=== PATIENT | male | born 1955 | race Caucasian/White ===

== ENCOUNTER → 2018-10-05 | Outpatient (CLI) | payer MEDICARE ==
--- NOTE | 2018-10-06 12:21 | XR ---
Right ankle HISTORY: Right ankle pain Reviews of the right ankle No comparisons There is soft tissue swelling present. Alignment, joint spaces, bone mineralization are maintained. T here is a plantar calcaneal spur. Enthesophyte present at the insertion of the Achilles tendon. Degen erative change present at the intertarsal joints, tarsometatarsal joints. IMPRESSION: Soft tissue swelling. Osteoarthritis and additional findings above.
== END | disposition home or self-care (01) ==
LOC: RADXRMAIN 18:57
PROVIDERS: ATTEND Family Medicine
DX: M19.071 Primary osteoarthritis, right ankle and foot (principal); M79.89 Other specified soft tissue disorders

== ENCOUNTER 2019-07-07 15:08 | Inpatient (IN) | payer MEDICARE ==
[2019-07-07] MEDS ORDERED: HEPARIN SODIUM,PORCINE 5,000 UNIT/ML 1 ML VIAL IV PRN (18:57)
[2019-07-07] MEDS ORDERED: HEPARIN SOD,PORK IN 0.45% NACL 25,000 UNIT in 0.45% NACL 1 250ML.BAG IV SCH (19:00)
[2019-07-07] MEDS ORDERED: DICYCLOMINE 20 MG TAB PO PRN (19:01)
[2019-07-07] MEDS: SODIUM CHLORIDE 0.9% 1,000 ML IV SCH ×2 (19:58→20:14)
[2019-07-07] MEDS: ATORVASTATIN 80 MG TAB PO SCH (20:02)
[2019-07-07] MEDS: MONTELUKAST 10 MG TAB PO SCH (20:02)
[2019-07-07 20:14] LABS: Glucose,Whole Blood 213 mg/dL (75-99)
[2019-07-07] MEDS: INSULIN ASPART (NovoLOG) 100 UNIT/ML VIAL SQ SCH (20:17)
[2019-07-08 05:13] LABS: Basophils # (A) 0.1 k/uL (0-0.2); Basophils % (A) 1 %; Eosinophils # (A) 0.2 k/uL (0-0.7); Eosinophils % (A) 2 %; HCT 41.1 % (39.0-53.0); HGB 13.7 gm/dL (13.0-17.5); Lymphocytes # (A) 3.1 k/uL (1.0-4.8); Lymphocytes % (A) 37 %; MCH 29.3 pg (25.0-35.0); MCHC 33.4 g/dL (31.0-37.0); MCV 87.9 fL (80.0-100.0); Mean Platelet Volume 6.8; Monocytes # (A) 0.6 k/uL (0-1.0); Monocytes % (A) 7 %; Neutrophils # (A) 4.2 k/uL (1.3-7.7); Neutrophils % (A) 51 %; Platelet Count 260 k/uL (150-450); RBC 4.67 m/uL (4.30-5.90); WBC 8.2 k/uL (3.8-10.6)
[2019-07-08 06:07] LABS: ALT 31 U/L (21-72); AST 44 U/L (17-59); African American GFR (CKD) >90 (>60 ml/min/1.73 sqM); Albumin 3.4 g/dL (3.5-5.0); Alkaline Phosphatase 78 U/L (38-126); Anion Gap 6 mmol/L; Blood Urea Nitrogen 13 mg/dL (9-20); Calcium 8.5 mg/dL (8.4-10.2); Carbon Dioxide 25 mmol/L (22-30); Chloride 105 mmol/L (98-107); Glucose 181 mg/dL (74-99); Non-African American GFR(CKD) >90 (>60 ml/min/1.73 sqM); Potassium 4.1 mmol/L (3.5-5.1); Sodium 136 mmol/L (137-145); Total Protein 6.3 g/dL (6.3-8.2)
[2019-07-08 06:10] LABS: Glucose,Whole Blood 162 mg/dL (75-99)
[2019-07-08] MEDS: INSULIN ASPART (NovoLOG) 100 UNIT/ML VIAL SQ SCH ×4 (06:12→20:30)
[2019-07-08] MEDS: METOPROLOL SUCCINATE (ER) 50 MG TAB.ER.24H PO SCH (06:16)
[2019-07-08] MEDS: ASPIRIN 81 MG PO SCH (06:16)
[2019-07-08] MEDS: SERTRALINE 50 MG TAB PO SCH (06:17)
[2019-07-08] MEDS: CLOPIDOGREL 75 MG TAB PO SCH (06:17)
[2019-07-08] MEDS: PANTOPRAZOLE 40 MG TABLET PO SCH ×2 (06:17→17:30)
[2019-07-08] MEDS: GABAPENTIN 300 MG CAP PO SCH (06:17)
[2019-07-08] MEDS ORDERED: SODIUM CHLORIDE 0.9% 1,000 ML IV ONE (09:27)
[2019-07-08] MEDS ORDERED: LIDOCAINE 1% INJ 10MG/ML (20 ML MDV) ONE (09:33)
[2019-07-08] MEDS ORDERED: VERAPAMIL 2.5 MG/ML 2 ML AMP ONE (09:34)
[2019-07-08] MEDS ORDERED: HEPARIN SODIUM 1,000 UN/ML (10ML VL) ONE (09:39)
[2019-07-08] MEDS ORDERED: MIDAZOLAM 2 MG/2 ML VIAL IVP ONE (09:58)
[2019-07-08] MEDS ORDERED: LIDOCAINE 1% INJ 10MG/ML (20 ML MDV) SQ ONE (09:59)
[2019-07-08] MEDS: VERAPAMIL SYRINGE (5 MG/10 ML) INTRAARTER ONE ×2 (10:00→10:12)
[2019-07-08] MEDS ORDERED: HEPARIN SODIUM 1,000 UN/ML (10ML VL) IV ONE (10:02)
[2019-07-08] MEDS ORDERED: IOPAMIDOL-370 125ML BTL INJ ONE (10:12)
[2019-07-08] MEDS ORDERED: RX INFO: IV CONTRAST WAS GIVEN 1 EACH MISC MISCELLANE PRN (10:16)
[2019-07-08] MEDS ORDERED: SODIUM CHLORIDE 0.9% 1,000 ML IV SCH (10:30)
--- NOTE | 2019-07-08 10:42 | CC ---
CARDIAC CATHETERIZATION REPORT DATE OF SERVICE: July 08, 2019 PERFORMING PHYSICIAN: Asher Cadena MD. PROCEDURE PERFORMED: 1. Selective right and left coronary angiogram. 2. Left heart catheterization. INDICATION: This is a very pleasant 63-year-old male patient with history of hypertension, dyslipidemia, and diabetes, presented to [facility] with shortness of breath and chest discomfort. He was ruled in for acute [id number] myocardial infarction. Because of that, coronary angiogram was advised. APPROACH: Right radial artery. COMPLICATION: None. LEVEL OF SEDATION: Moderate with sedation length of 15 minutes. PROCEDURE DESCRIPTION: After obtaining an informed consent, the patient was brought to the cardiac solar lab technician. The right radial artery was cannulated using micropuncture technique, the micropuncture wire passed easily. Then I placed a 6-Korean sheath in the right radial artery. After that I gave the patient 2 mg of verapamil IA and 10,000 units of heparin IV. Selective right and left coronary angiogram performed using JR4 and JL3.5 catheters. Left heart catheterization was performed using pigtail catheter. The procedure was completed without any complication. SELECTIVE CORONARY ANGIOGRAM: 1. The RCA is a large caliber vessel. It is a dominant vessel and appeared to be angiographically normal. It distally bifurcates into PDA and PLV branches. Both appeared to be angiographically normal. 2. The left main is angiographically normal it bifurcates into LCX and LAD. 3. The LCX is a large caliber vessel. It is a nondominant vessel. The left circumflex is angiographically normal, in the midportion gives rise into a large OM branch which seems to be angiographically normal and the circumflex continued after that as a small-caliber vessel in the AV groove. In the very distal portion gives rise into a small 2nd OM branch which seems to be normal. 4. The LAD: The proximal LAD appeared to be angiographically normal. It gives rise into a medium sized diagonal branch which seems to be normal. The mid LAD and distal LAD appeared to be angiographically normal. The LAD in the mid to distal portion gives rise into 2 other diagonal branches. They appeared to be angiographically normal. HEMODYNAMICS: The LVEDP was about 4-8 mmHg without significant gradient across aortic valve. CONCLUSION: 1. Normal coronary angiogram. 2. Normal LVEDP. POSTPROCEDURE MANAGEMENT: 1. Medical treatment. 2. Follow up with the patient. MMODL / IJN: [id number] /
[2019-07-08 11:55] LABS: Glucose,Whole Blood 190 mg/dL (75-99)
[2019-07-08 16:55] LABS: Glucose,Whole Blood 167 mg/dL (75-99)
--- NOTE | 2019-07-08 18:19 | P.HPIM ---
History of Present Illness H&P Date: 07/08/19 Chief Complaint: Shortness of breath- transferred from [facility] Mr. Lynn is a 62-year-old male with a past medical history of hypertension, hyperlipidemia, new onset diabetes transferred from [facility] for NSTEMI. Patient states that he has been treated for a upper respiratory tract infection recently and he has been recovering well. But for the past 2-3 weeks he has been feeling a pressure in the substernal area that has been bothering him. But couple of days back it was so severe that he came to [facility]. Over the patient had mildly elevated troponins and he was seen by cardiology Dr. Roberson who transferred the patient here for cardiac catheterization. This morning patient was taken for a cardiac catheterization by Dr. Roberson and had a clean coronary angiogram. Patient is comfortably sitting in the bed appe ars to be no acute distress. He states that he does not have the chest discomfort anymore. Patient denies having any shortness of breath. No fevers chills or rigors. No dysuria or hematuria. No abdominal pain nausea vomiting or diarrhea. Review of Systems REVIEW OF SYSTEMS: PSYCH: Normal psychiatric exam NEURO:No c/o weakness of the extremties, No facial droop, No speech abnormalities. VASCULAR: Peripheral nervous system within the normal limits no edema HEMATOLOGIC: No history of easy bleeding and bruising . No recent infections . RESPIRATORY: No cough, No SOB, No chest discomfort. IMMUNE: No infections INTEGUMENT: no rashes OPHTHALMOLOGIC: No blurry vision and no eye discharge : No dysuria or hematuria CARDIAC: No chest pain , shortness of breath , paroxysmal nocturnal dyspnea MUSCULOSKELETAL : No Aches or pains in the joints or muscles. GI: No abdominal pain, Nausea or vomiting. No constipation or diarrhea. 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, stage 3 kidney disease, abd hernia, History of Any Multi-Drug Resistant Organisms: None Reported Past Surgical History: Heart Catheterization Past Anesthesia/Blood Transfusion Reactions: No Reported Reaction Past Psychological History: No Psychological Hx Reported Smoking Status: Former smoker Past Alcohol Use History: None Reported Past Drug Use History: None Reported - Past Family History Father Family Medical History: Cancer Mother Family Medical History: Coronary Artery Disease (CAD), Dementia, Memory Impairment Medications and Allergies Home Medications Medication Instructions Recorded Confirmed Type Aspirin EC [Ecotrin Low Dose] 81 mg PO DAILY 07/07/19 07/07/19 History Bisacodyl [Dulcolax] 5 mg PO DAILY PRN 07/07/19 07/07/19 History Clopidogrel Bisulfate [Plavix] 75 mg PO DAILY 07/07/19 07/07/19 History Dicyclomine [Bentyl] 20 mg PO TID 07/07/19 07/07/19 History Gabapentin [Neurontin] 300 mg PO BID 07/07/19 07/07/19 History Metoprolol Succinate [Toprol XL] 50 mg PO DAILY 07/07/19 07/07/19 History Montelukast [Singulair] 10 mg PO DAILY 07/07/19 07/07/19 History Omeprazole 20 mg PO BID 07/07/19 07/07/19 History Rosuvastatin [Crestor] 20 mg PO DAILY 07/07/19 07/07/19 History Sertraline [Zoloft] 50 mg PO DAILY 07/07/19 07/07/19 History Allergies Allergy/AdvReac Type Severity Reaction Status Date / Time Androgenic Anabolic Steroid Allergy Rapid Verified 07/07/19 20:00 Heart Rate Physical Exam Vitals: Vital Signs Temp Pulse Resp BP Pulse Ox 07/08/19 12:00 78 16 07/08/19 08:00 98.1 F 78 16 164/87 95 07/08/19 04:00 98.6 F 89 16 135/82 95 07/08/19 00:00 98.3 F 82 17 151/89 94 L 07/07/19 20:00 97.7 F 70 19 146/53 94 L 07/07/19 18:48 97.7 F 70 19 146/83 94 L Intake and Output 07/08/19 07/08/19 07/08/19 06:59 14:59 22:59 Intake Total 1091.571 460 Output Total 200 Balance 1091.571 260 Intake: IV 20 220 Invasive Line 1 20 20 Intake, IV Titration 1071.571 Amount Heparin Sod,Pork in 0.45% 87.571 NaCl 25,000 unit In 0.45 % NaCl 1 250ml.bag @ 8 UNITS/KG/HR 9.89 mls/hr IV .Q24H [facility] Rx#: [id number] Sodium Chloride 0.9% 1, 984 000 ml @ 123 mls/hr IV . Q8H8M [facility] Rx#:[id number] Oral 240 Output: Urine 200 Other: Voiding Method Toilet Toilet Weight 119.6 kg GEN. APPEARANCE: alert, in no apparent distress HEENT: Normocephalic. No pallor. No icterus. No JVD. No thyromegaly. RESPIRATORY EXAM: normal lung sounds bilaterally. No wheeze or crackles. CARDIOVASCULAR EXAM: regular rate, normal rhythm, normal heart sounds. No additional sounds. GI/ABDOMINAL EXAM: soft, normal bowel sounds. No guarding or rigidity. No tenderness. EXTREMITIES EXAM: No edema. NEUROLOGICAL EXAM: alert, oriented X3, no focal neurological deficits PSYCHIATRIC EXAM: normal affect, normal mood SKIN EXAM: No rash Results CBC & Chem 7: 07/08/19 04:57 07/08/19 04:57 Labs: Abnormal Lab Results - Last 24 Hours (Table) 07/07/19 07/07/19 07/08/19 Range/Units 20:09 20:19 04:57 APTT 40.9 H 37.1 H (22.0-30.0) sec Sodium (137-145) mmol/L Glucose (74-99) mg/dL POC Glucose (mg/dL) 213 H (75-99) mg/dL Albumin (3.5-5.0) g/dL 07/08/19 07/08/19 07/08/19 Range/Units 04:57 05:49 11:41 APTT (22.0-30.0) sec Sodium 136 L (137-145) mmol/L Glucose 181 H (74-99) mg/dL POC Glucose (mg/dL) 162 H 190 H (75-99) mg/dL Albumin 3.4 L (3.5-5.0) g/dL 07/08/19 Range/Units 16:32 APTT (22.0-30.0) sec Sodium (137-145) mmol/L Glucose (74-99) mg/dL POC Glucose (mg/dL) 167 H (75-99) mg/dL Albumin (3.5-5.0) g/dL Thrombosis Risk Factor Assmnt - Choose All That Apply Any of the Below Risk Factors Present?: Yes Each Factor Represents 1 point: Obesity (BMI >25), Serious lung disease incl. pneumonia (< 1month) Other Risk Factors: Yes Each Risk Factor Represents 2 Points: Age 61-74 years Thrombosis Risk Factor Assessment Total Risk Factor Score: 4 Thrombosis Risk Factor Assessment Level: Moderate Risk Assessment and Plan Assessment: ASSESSMENT NSTEMI Hypertension New onset diabetes mellitus Stroke/TIA CK D stage III Hiatal hernia Multiple joint osteoarthritis Hyperlipidemia PLAN: Patient had normal coronary angiogram. With his new onset diabetes patient will need diabetic education. Currently he is on a sliding scale of insulin. Anticipate discharge in the next [address] Cosme to follow the patient from tomorrow.
[2019-07-08] MEDS: SODIUM CHLORIDE 0.9% 1,000 ML IV SCH (19:17)
[2019-07-08] MEDS: ATORVASTATIN 80 MG TAB PO SCH (20:26)
[2019-07-08] MEDS: MONTELUKAST 10 MG TAB PO SCH (20:26)
[2019-07-08 20:30] LABS: Glucose,Whole Blood 183 mg/dL (75-99)
[2019-07-09 06:07] LABS: Basophils # (A) 0.1 k/uL (0-0.2); Basophils % (A) 1 %; Eosinophils # (A) 0.7 k/uL (0-0.7); Eosinophils % (A) 8 %; HCT 39.9 % (39.0-53.0); HGB 13.6 gm/dL (13.0-17.5); Lymphocytes % (A) 36 %; MCHC 34.1 g/dL (31.0-37.0); MCV 87.9 fL (80.0-100.0); Mean Platelet Volume 7.6; Monocytes # (A) 0.7 k/uL (0-1.0); Monocytes % (A) 8 %; Neutrophils # (A) 3.8 k/uL (1.3-7.7); Neutrophils % (A) 45 %; Platelet Count 139 k/uL (150-450); RBC 4.54 m/uL (4.30-5.90); RDW 13.1 % (11.5-15.5); WBC 8.3 k/uL (3.8-10.6)
[2019-07-09 06:17] LABS: Glucose,Whole Blood 151 mg/dL (75-99)
[2019-07-09 06:23] LABS: African American GFR (CKD) >90 (>60 ml/min/1.73 sqM); Anion Gap 7 mmol/L; Blood Urea Nitrogen 10 mg/dL (9-20); Calcium 8.8 mg/dL (8.4-10.2); Carbon Dioxide 26 mmol/L (22-30); Chloride 104 mmol/L (98-107); Glucose 163 mg/dL (74-99); Non-African American GFR(CKD) >90 (>60 ml/min/1.73 sqM); Potassium 4.1 mmol/L (3.5-5.1); Sodium 137 mmol/L (137-145)
[2019-07-09] MEDS: PANTOPRAZOLE 40 MG TABLET PO SCH (06:37)
[2019-07-09] MEDS: INSULIN ASPART (NovoLOG) 100 UNIT/ML VIAL SQ SCH (06:37)
--- NOTE | 2019-07-09 07:23 | P.DS ---
Providers Date of admission: 07/07/19 18:11 Attending physician: Bro Cosme Consults: 07/07/19 19:22 Consult Physician Routine Consulting Provider: Asher Cadena Consult Reason/Comments: elevated troponin Do you want consulting provider notified?: Already Contacted Placement Type Exists?: Yes Primary care physician: Bro Cosme Hospital Course: The patient was essentially admitted for chest pain with element of elevated troponin. Due to his previous vascular disease, had coronary catheterization which is nominal. He will be discharged once cleared by cardiology. I suspect he has an element of new onset diabetes. His blood sugar has been fairly well- controlled during this hospitalization he'll follow-up with me in 3 days for elucidation and appropriate treatment at that time. Patient Condition at Discharge: Fair Plan - Discharge Summary Discharge Rx Participant: No New Discharge Prescriptions: Continue Bisacodyl [Dulcolax] 5 mg PO DAILY PRN PRN Reason: Constipation Sertraline [Zoloft] 50 mg PO DAILY Metoprolol Succinate [Toprol XL] 50 mg PO DAILY Clopidogrel Bisulfate [Plavix] 75 mg PO DAILY Rosuvastatin [Crestor] 20 mg PO DAILY Omeprazole 20 mg PO BID Montelukast [Singulair] 10 mg PO DAILY Gabapentin [Neurontin] 300 mg PO BID Dicyclomine [Bentyl] 20 mg PO TID Aspirin EC [Ecotrin Low Dose] 81 mg PO DAILY Discharge Medication List Aspirin EC [Ecotrin Low Dose] 81 mg PO DAILY 07/07/19 [History] Bisacodyl [Dulcolax] 5 mg PO DAILY PRN 07/07/19 [History] Clopidogrel Bisulfate [Plavix] 75 mg PO DAILY 07/07/19 [History] Dicyclomine [Bentyl] 20 mg PO TID 07/07/19 [History] Gabapentin [Neurontin] 300 mg PO BID 07/07/19 [History] Metoprolol Succinate [Toprol XL] 50 mg PO DAILY 07/07/19 [History] Montelukast [Singulair] 10 mg PO DAILY 07/07/19 [History] Omeprazole 20 mg PO BID 07/07/19 [History] Rosuvastatin [Crestor] 20 mg PO DAILY 07/07/19 [History] Sertraline [Zoloft] 50 mg PO DAILY 07/07/19 [History]
[2019-07-09 08:40] VITALS: BP 145/83; PULSE 70; RESP 16; TEMP 98.1
[2019-07-09] MEDS ORDERED: INFLUENZA VACCINE (6 MOS+) 60 MCG/0.5 ML SYRINGE IM ONE (08:46)
[2019-07-09] MEDS: ASPIRIN 81 MG PO SCH (09:07)
[2019-07-09] MEDS: CLOPIDOGREL 75 MG TAB PO SCH (09:07)
[2019-07-09] MEDS: METOPROLOL SUCCINATE (ER) 50 MG TAB.ER.24H PO SCH (09:07)
[2019-07-09] MEDS: GABAPENTIN 300 MG CAP PO SCH (09:07)
[2019-07-09] MEDS: SERTRALINE 50 MG TAB PO SCH (09:07)
[2019-07-09 10:18] LABS: Hemoglobin A1C 9.2 % (4.0-6.0)
--- NOTE | 2019-07-09 10:20 | PN ---
PROGRESS NOTE Mr. Lynn is a 63-year-old male who presented with symptoms of cough and dyspnea to [facility], had mild troponin elevation, was evaluated by Dr. Cadena, subsequently transferred to [facility], underwent cardiac catheterization, was found to have no evidence of obstructive disease. He is doing well this morning. His breathing has been stable. He denies any dizziness, palpitation. Denies any nausea. He continues to be on aspirin once a day, Lipitor 80 mg daily, Plavix 75 mg daily, metoprolol succinate 50 mg daily, Singulair 10 mg daily, sertraline. PHYSICAL EXAMINATION: Blood pressure running in the 130s to 140s with a heart rate in the 70s. LUNGS: Clear. HEART: Regular rate and rhythm, S1, S2. No S3. No rub. ABDOMEN: Soft, nontender. EXTREMITIES: No edema. Right radial pulse intact. LAB DATA: Revealed BUN and creatinine 10 and 0.76, potassium 4.1. IMPRESSION: 1. Mild troponin elevation with no evidence of obstructive coronary artery disease, could be related to his pneumonia. 2. History of hypertension. 3. Hyperlipidemia. RECOMMENDATION: From the cardiac standpoint, he is stable. Should be able to be discharged home today and followed as an outpatient by Dr. Cadena. MMODL / IJN: [id number] /
== END 2019-07-09 09:35 | disposition home or self-care (01) | DRG 287 ==
LOC: 3SCARD 18:11
PROVIDERS: ADMIT Family Medicine; ATTEND Family Medicine
PROC: 4A023N7 Measurement of Cardiac Sampling and Pressure, Left Heart, Percutaneous Approach (ICD-10-PCS; 2019-07-08)
PROC: B2111ZZ Fluoroscopy of Multiple Coronary Arteries using Low Osmolar Contrast (ICD-10-PCS; 2019-07-08)
PROC: 3E02340 Introduction of Influenza Vaccine into Muscle, Percutaneous Approach (ICD-10-PCS; principal; 2019-07-09)
DX: R07.9 Chest pain, unspecified (principal); E11.22 Type 2 diabetes mellitus with diabetic chronic kidney disease; N18.3 Chronic kidney disease, stage 3 (moderate); R79.89 Other specified abnormal findings of blood chemistry; Z23 Encounter for immunization; I12.9 Hypertensive chronic kidney disease with stage 1 through stage 4 chronic kidney disease, or unspecified chronic kidney disease; E78.5 Hyperlipidemia, unspecified; J06.9 Acute upper respiratory infection, unspecified; K44.9 Diaphragmatic hernia without obstruction or gangrene; J45.909 Unspecified asthma, uncomplicated; K46.9 Unspecified abdominal hernia without obstruction or gangrene; M19.90 Unspecified osteoarthritis, unspecified site; Z79.82 Long term (current) use of aspirin; Z79.02 Long term (current) use of antithrombotics/antiplatelets; Z79.899 Other long term (current) drug therapy; Z86.73 Personal history of transient ischemic attack (TIA), and cerebral infarction without residual deficits; Z87.891 Personal history of nicotine dependence; Z88.8 Allergy status to other drugs, medicaments and biological substances; Z82.49 Family history of ischemic heart disease and other diseases of the circulatory system; Z81.8 Family history of other mental and behavioral disorders; Z80.9 Family history of malignant neoplasm, unspecified
CPT/HCPCS: 80048; 80053; 83036; 85025; 85730; 90686; 93458

== ENCOUNTER 2021-12-02 17:46 | Emergency (ER) | payer MEDICARE ==
[2021-12-02] MEDS ORDERED: SODIUM CHLORIDE 0.9% 1,000 ML IV STA (19:14)
[2021-12-02] MEDS ORDERED: PANTOPRAZOLE 40 MG/10 ML VIAL IVP STA (19:15)
--- NOTE | 2021-12-02 19:20 | ED ---
General Adult HPI - General Chief complaint: GI Bleed Stated complaint: Fall,Blood in Stool,Blood Thinners Time Seen by Provider: 12/02/21 18:38 Source: patient, family Mode of arrival: wheelchair Limitations: no limitations - History of Present Illness Initial comments: Dictation was produced using [employer] dictation software. please excuse any gram matical, word or spelling errors. Chief Complaint: 65-year-old male presents emergency Department with bright red blood per rectum History of Present Illness: Is a 65-year-old male presents emergency Department with bright red blood per rectum. He also reports accompanied left lower quadrant pain. Patient's bleeding allegedly began at approximately 2 PM today. He is had multiple bouts of bright blood per rectum since then. Patient denies any nausea. He denies any upper quadrant abdominal pain. at the bedside reports that he looked pale. He takes Plavix but no anticoagulation medications. He denies any rectal pain. Patient isn't diaphoretic and lightheaded. reports that he had 6 bowel movements of bright red blood per rectum today. The ROS documented in this emergency department record has been reviewed and confirmed by me. Those systems with pertinent positive or negative responses have been documented in the HPI. All other systems are other negative and/or noncontributory. PHYSICAL EXAM: General Impression: Alert and oriented x3, pale, diaphoretic HEENT: Normocephalic atraumatic, extra-ocular movements intact, pupils equal and reactive to light bilaterally, mucous membranes moist. Cardiovascular: Heart regular rate and rhythm Chest: Able to complete full sentences, no retractions, no tachypnea Abdomen: abdomen soft, non-tender, non-distended, no organomegaly Musculoskeletal: Pulses present and equal in all extremities, no peripheral ed dae Motor: no focal deficits noted Neurological: CN II-XII grossly intact, no focal motor or sensory deficits noted Skin: Intact with no visualized rashes ED course: 65-year-old male presents to the emergency department for red blood per rectum. Vital signs upon arrival are within acceptable limits. He's had multiple episodes of bloody bowel movements. Rectal exam shows residual blood around the rectum but no obvious sign of bleeding. His report accompanied left lower quadrant abdominal pain. Denies any constitutional symptoms however. Computed tomography scan of the abdomen and pelvis shows mild diverticulitis of the lower descending colon. he is started on Zosyn. Patient is continuing to pass blood clots in his diaper. Although his vitals and his hemoglobin appear to be stable at this point he is having active bleeding. Patient given Protonix. Her for transfusion of one pack red blood cell for concerns of symptomatic anemia. Spoke with Dr. Lira who is willing to accept the patient's care for ER to ER transfer. EKG interpretation: Ventricular rate 84, sinus rhythm,. Interval 145, QS 141, QTc 438, right bundle branch block. No VA prolongation, no QTC prolongation, no ST or T-wave changes noted. EKG compared to 07/08/2019 showing no changes. Overall, this EKG is nonspecific. - Related Data Home Medications Medication Instructions Recorded Confirmed Aspirin EC [Ecotrin Low Dose] 81 mg PO DAILY 07/07/19 12/02/21 Clopidogrel Bisulfate [Plavix] 75 mg PO DAILY 07/07/19 12/02/21 Dicyclomine [Bentyl] 20 mg PO DAILY 07/07/19 12/02/21 Gabapentin [Neurontin] 300 mg PO DAILY 07/07/19 12/02/21 Metoprolol Succinate [Toprol XL] 50 mg PO DAILY 07/07/19 12/02/21 Montelukast [Singulair] 10 mg PO DAILY 07/07/19 12/02/21 Omeprazole 20 mg PO DAILY 07/07/19 12/02/21 Rosuvastatin [Crestor] 20 mg PO DAILY 07/07/19 12/02/21 Sertraline [Zoloft] 50 mg PO DAILY 07/07/19 12/02/21 Insulin Glargine,Hum.rec.anlog 46 units SQ HS 12/02/21 12/02/21 [Toujeo Solostar] Insulin Lispro [humaLOG Kwikpen] See Protocol SQ AC-TID 12/02/21 12/02/21 Loratadine 10 mg PO DAILY 12/02/21 12/02/21 Allergies Allergy/AdvReac Type Severity Reaction Status Date / Time Androgenic Anabolic Steroid Allergy Rapid Verified 12/02/21 21:04 Heart Rate Review of Systems ROS Statement: Those systems with pertinent positive or pertinent negative responses have been documented in the HPI. ROS Other: All systems not noted in ROS Statement are negative. 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, stage 3 kidney disease, abd hernia, History of Any Multi-Drug Resistant Organisms: None Reported Past Surgical History: Heart Catheterization Past Anesthesia/Blood Transfusion Reactions: No Reported Reaction Past Psychological History: No Psychological Hx Reported Smoking Status: Former smoker Past Alcohol Use History: None Reported Past Drug Use History: None Reported - Past Family History Father Family Medical History: Cancer Mother Family Medical History: Coronary Artery Disease (CAD), Dementia, Memory Impairment General Exam Limitations: no limitations Course Vital Signs 12/02/21 12/02/21 18:21 19:11 Temperature 98.8 F Pulse Rate 92 84 Respiratory 20 20 Rate Blood Pressure 130/78 122/89 O2 Sat by Pulse 96 94 L Oximetry Medical Decision Making - Lab Data Result diagrams: 12/02/21 19:32 12/02/21 19:32 Lab Results 12/02/21 12/02/21 12/02/21 Range/Units 19:32 19:32 19:32 WBC 15.5 H (3.8-10.6) k/uL RBC 4.97 (4.30-5.90) m/uL Hgb 15.0 (13.0-17.5) gm/dL Hct 43.8 (39.0-53.0) % MCV 88.2 (80.0-100.0) fL MCH 30.3 (25.0-35.0) pg MCHC 34.3 (31.0-37.0) g/dL RDW 13.3 (11.5-15.5) % Plt Count 323 (150-450) k/uL MPV 7.4 Neutrophils % 72 % Lymphocytes % 20 % Monocytes % 5 % Eosinophils % 1 % Basophils % 1 % Neutrophils # 11.1 H (1.3-7.7) k/uL Lymphocytes # 3.2 (1.0-4.8) k/uL Monocytes # 0.8 (0-1.0) k/uL Eosinophils # 0.1 (0-0.7) k/uL Basophils # 0.1 (0-0.2) k/uL PT 10.2 (9.0-12.0) sec INR 0.9 (<1.2) APTT 21.1 L (22.0-30.0) sec Sodium 134 L (137-145) mmol/L Potassium 4.3 (3.5-5.1) mmol/L Chloride 101 (98-107) mmol/L Carbon Dioxide 24 (22-30) mmol/L Anion Gap 9 mmol/L BUN 13 (9-20) mg/dL Creatinine 0.83 (0.66-1.25) mg/dL Est GFR (CKD-EPI)AfAm >90 (>60 ml/min/1.73 sqM) Est GFR (CKD-EPI)NonAf >90 (>60 ml/min/1.73 sqM) Glucose 290 H (74-99) mg/dL Calcium 8.8 (8.4-10.2) mg/dL Blood Type Blood Type Confirm Blood Type Recheck Bld Type Recheck Status Antibody Screen Crossmatch Spec Expiration Date 12/02/21 12/02/21 Range/Units 19:32 19:44 WBC (3.8-10.6) k/uL RBC (4.30-5.90) m/uL Hgb (13.0-17.5) gm/dL Hct (39.0-53.0) % MCV (80.0-100.0) fL MCH (25.0-35.0) pg MCHC (31.0-37.0) g/dL RDW (11.5-15.5) % Plt Count (150-450) k/uL MPV Neutrophils % % Lymphocytes % % Monocytes % % Eosinophils % % Basophils % % Neutrophils # (1.3-7.7) k/uL Lymphocytes # (1.0-4.8) k/uL Monocytes # (0-1.0) k/uL Eosinophils # (0-0.7) k/uL Basophils # (0-0.2) k/uL PT (9.0-12.0) sec INR (<1.2) APTT (22.0-30.0) sec Sodium (137-145) mmol/L Potassium (3.5-5.1) mmol/L Chloride (98-107) mmol/L Carbon Dioxide (22-30) mmol/L Anion Gap mmol/L BUN (9-20) mg/dL Creatinine (0.66-1.25) mg/dL Est GFR (CKD-EPI)AfAm (>60 ml/min/1.73 sqM) Est GFR (CKD-EPI)NonAf (>60 ml/min/1.73 sqM) Glucose (74-99) mg/dL Calcium (8.4-10.2) mg/dL Blood Type A Negative Blood Type Confirm A Negative Blood Type Recheck No Previous Record Bld Type Recheck Status CABO Indicated Antibody Screen NEGATIVE Crossmatch See Detail Spec Expiration Date 12/05/20212331 Critical Care Time Critical Care Time: Yes Total Critical Care Time: 33 Disposition Clinical Impression: Bright red blood per rectum Disposition: OTHER INSTITUTION NOT DEFINED Condition: Critical Referrals: Nathaniel eD MD [Primary Care Provider] - 1-2 days - Out of Hospital Transfer - Req. Specs Out of Hospital Transfer - Requested Specifics: Other Emergency Center ([facility])
[2021-12-02 19:45] LABS: Basophils # (A) 0.1 k/uL (0-0.2); Basophils % (A) 1 %; Eosinophils # (A) 0.1 k/uL (0-0.7); Eosinophils % (A) 1 %; HCT 43.8 % (39.0-53.0); Lymphocytes # (A) 3.2 k/uL (1.0-4.8); Lymphocytes % (A) 20 %; MCH 30.3 pg (25.0-35.0); MCHC 34.3 g/dL (31.0-37.0); MCV 88.2 fL (80.0-100.0); Mean Platelet Volume 7.4; Monocytes # (A) 0.8 k/uL (0-1.0); Monocytes % (A) 5 %; Neutrophils # (A) 11.1 k/uL (1.3-7.7); Neutrophils % (A) 72 %; Platelet Count 323 k/uL (150-450); RBC 4.97 m/uL (4.30-5.90); RDW 13.3 % (11.5-15.5); WBC 15.5 k/uL (3.8-10.6)
[2021-12-02 19:55] LABS: African American GFR (CKD) >90 (>60 ml/min/1.73 sqM); Anion Gap 9 mmol/L; Blood Urea Nitrogen 13 mg/dL (9-20); Calcium 8.8 mg/dL (8.4-10.2); Carbon Dioxide 24 mmol/L (22-30); Chloride 101 mmol/L (98-107); Glucose 290 mg/dL (74-99); Non-African American GFR(CKD) >90 (>60 ml/min/1.73 sqM); Potassium 4.3 mmol/L (3.5-5.1); Sodium 134 mmol/L (137-145)
[2021-12-02 20:00] LABS: INR 0.9 (<1.2); Prothrombin Time 10.2 sec (9.0-12.0)
[2021-12-02 20:31] LABS: Partial Thromboplastin Time 21.1 sec (22.0-30.0)
--- NOTE | 2021-12-02 21:06 | CT ---
EXAMINATION TYPE: CT abdomen pelvis w con DATE OF EXAM: 12/02/2021 COMPARISON: None HISTORY: h/o rectal bleeding CT DLP: 2422.4 mGycm Automated exposure control for dose reduction was used. CONTRAST: Performed with IV Contrast, patient injected with 100 mL of Isovue 300. Images obtained from the diaphragm to the floor the pelvis with IV contrast. There is large hiatal hernia. There is some atelectasis at the lung bases. Heart size is normal. No p ericardial effusion. Liver is intact. Spleen is intact. There is no pancreatic mass. Gallbladder appears intact. There is intrathoracic stomach. The bile ducts are not dilated. There is no adrenal mass. Kidneys show satisfactory contrast opacification. There is no hydronephrosi s. Delayed images show normal renal excretion. There is no retroperitoneal adenopathy. Ureters are no t dilated. There is mild fat stranding around the descending colon. There are few sigmoid diverticula . There are diverticula in the descending colon. There is 4 cm fat-containing umbilical hernia. Bladd er is almost empty. No pelvic mass. No free fluid in the pelvis. Appendix appears normal. The lumbar vertebra have normal alignment. There is no compression fracture. There is degenerative sp urring in the lumbar spine. Bony pelvis is intact. Hip joints are intact. There is some mild acetabul ar spurring. IMPRESSION: There is some mild diverticulitis of the lower descending colon. There is sigmoid diverticulosis. Nor mal appendix. Large hiatal hernia with intrathoracic stomach and this gastric surgery.
[2021-12-02] MEDS ORDERED: PIPERACILLIN-TAZOBACTAM 3.375 GM in SODIUM CHLORIDE 0.9% 100 ML IVPB ONE (21:15)
[2021-12-02 22:25] VITALS: BP 106/77; PULSE 85; RESP 12; TEMP 98.2
[2021-12-02] MEDS ORDERED: ONDANSETRON 4 MG/2 ML VIAL IVP STA (22:37)
[2021-12-02] MEDS ORDERED: ONDANSETRON ODT 8 MG TAB.RAPDIS PO STA (22:41)
== END 2021-12-02 22:55 | disposition other institution (70) ==
LOC: EC 17:46
DX: K62.5 Hemorrhage of anus and rectum (principal); K57.32 Diverticulitis of large intestine without perforation or abscess without bleeding; E11.22 Type 2 diabetes mellitus with diabetic chronic kidney disease; I12.9 Hypertensive chronic kidney disease with stage 1 through stage 4 chronic kidney disease, or unspecified chronic kidney disease; N18.30 Chronic kidney disease, stage 3 unspecified; J45.909 Unspecified asthma, uncomplicated; M19.90 Unspecified osteoarthritis, unspecified site; Z79.02 Long term (current) use of antithrombotics/antiplatelets; Z79.4 Long term (current) use of insulin; Z79.82 Long term (current) use of aspirin; Z86.73 Personal history of transient ischemic attack (TIA), and cerebral infarction without residual deficits; Z87.891 Personal history of nicotine dependence
CPT/HCPCS: 36415; 93005; 86900; 86901; 80048; 85025; 85610; 85730; 86850; 86920; 87635; 74177; 99291; 96374; 96375; 96361 ×3; P9016; J2543; C9113